=== PATIENT | female | born 1960 | race Two or more races ===

== ENCOUNTER 2017-08-16 13:35 | Day surgery (SDC) | payer BC ==
[2017-08-16] MEDS ORDERED: FENTANYL PF 100MCG/2ML VIAL IV ONE (13:36)
[2017-08-16] MEDS ORDERED: LIDOCAINE 2% MDV (20MG/ML) 20ML VIAL IV ONE (13:36)
[2017-08-16] MEDS ORDERED: PROPOFOL 10 MG/ML VIAL IV ONE (13:36)
--- NOTE | 2017-08-17 12:40 | Operative Note ---
DATE OF SURGERY: 08/16/2017 OPERATION: ESOPHAGOGASTRODUODENOSCOPY with biopsy. PREOPERATIVE DIAGNOSIS: Recurrent nausea and vomiting. POSTOPERATIVE DIAGNOSIS: Nonerosive gastritis. Otherwise normal exam. PROCEDURE: After informed consent was obtained from the patient, she was placed in the left lateral decubitus position in the endoscopy suite, sedated and monitored by the department of anesthesia. A well-lubricated RVX021 gastroscope was placed in the posterior oropharynx and under direct visualization passed to the proximal esophagus. The endoscope was advanced through the proximal, mid, and distal esophagus. The GE junction and esophagus were free of ulcers, erosions, inflammatory changes, strictures, or varices. The gastric body was unremarkable. The antrum revealed mild erythema. The duodenal bulb and sweep were unremarkable. J-turn views of the proximal stomach were unrevealing. The endoscope was straightened. Gastric biopsies were obtained. The stomach was deflated and the endoscope removed from the patient with no new findings noted. RECOMMENDATIONS: I believe the patient should undergo a gastric emptying study to ascertain whether there is evidence of gastric motility issue which could be responsible for her nausea and vomiting. As always, thank you for allowing me to participate in the healthcare of your patients. CC: Douglas Mesa, DO [facility]
== END 2017-08-16 14:35 | disposition home or self-care (01) ==
LOC: HOP 13:35
PROVIDERS: ATTEND Internal Medicine Gastroenterology
DX: K29.60 Other gastritis without bleeding (principal); M06.9 Rheumatoid arthritis, unspecified
CPT/HCPCS: 43239; 00731; J3010